=== PATIENT | male | born 1970 | race Caucasian/White ===

== ENCOUNTER 2016-06-26 16:13 | Emergency (ER) | payer MEDICARE, OTHER ==
[~2016-06-26] VITALS: Ht 165.1 cm; Wt 65.0 kg
[~2016-06-26 16:13] MED LIST: DEPAKOTE; SEROQUEL; TRAZODONE
[2016-06-26 16:21] VITALS: Ht 165.1 cm; Wt 65.0 kg
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
== END 2016-06-26 16:30 | disposition left against medical advice (07) ==
LOC: E/R 16:13
DX: F10.10 Alcohol abuse, uncomplicated (principal); F15.10 Other stimulant abuse, uncomplicated; Z86.59 Personal history of other mental and behavioral disorders
CPT/HCPCS: 99284